=== PATIENT | female | born 1965 | race Caucasian/White ===

== ENCOUNTER 2017-06-20 10:36 | Emergency (ER) | payer BC ==
[~2017-06-20] VITALS: Ht 167.6 cm; Wt 61.0 kg
[2017-06-20] MEDS ORDERED: NAPR250T6 PO (10:54)
[2017-06-20] MEDS ORDERED: tylenol PM PO (10:54)
[2017-06-20] MEDS ORDERED: ASPIRIN 81 MG TABLET CHEW PO ONE (11:00)
[2017-06-20 11:27] LABS: BASOPHILS # (AUTO) 0.06 x10^3/uL (0-0.1); BASOPHILS % (AUTO) 1 % (0-1); EOSINOPHILS # (AUTO) 0.11 x10^3/uL (0-0.4); EOSINOPHILS % (AUTO) 2 % (1-7); LYMPHOCYTES # (AUTO) 1.63 x10^3/uL (1-3.4); LYMPHOCYTES % (AUTO) 29 % (22-44); MD NO; MEAN CORPUSCULAR HEMOGLOBIN 29.1 pg (27.0-34.8); MEAN CORPUSCULAR HGB CONC 33.5 g/dL (32.4-35.8); MEAN CORPUSCULAR VOLUME 86.8 fL (80-100); MEAN PLATELET VOLUME 8.2 fL (7.4-10.4); MONOCYTES # (AUTO) 0.33 x10^3/uL (0.2-0.8); MONOCYTES % (AUTO) 6 % (2-9); NEUTROPHILS # (AUTO) 3.45 x10^3/uL (1.8-6.8); NEUTROPHILS % (AUTO) 62 % (42-75); PLATELET COUNT 250 x10^3/uL (130-400); RED BLOOD COUNT 5.34 x10^6/uL (3.82-5.3); RED CELL DISTRIBUTION WIDTH 14.2 % (9.6-15.2)
[2017-06-20 11:34] LABS: ALBUMIN 3.9 g/dL (3.4-5.0); ANION GAP 7 mmol/L (5-15); CHLORIDE 110 mmol/L (98-107); CREATININE 0.69 mg/dL (0.55-1.02)
[2017-06-20 11:38] LABS: TROPONIN I < 0.015 ng/mL (0.000-0.045)
[2017-06-20] MEDS ORDERED: KETOROLAC 30 MG/1 ML IVPush ONE (12:00)
[2017-06-20] MEDS ORDERED: KETOROLAC 30 MG/1 ML ONE (12:03)
[2017-06-20 14:03] VITALS: BP 148/93
== END 2017-06-20 14:05 | disposition home or self-care (01) ==
LOC: ED 13:37
DX: R07.9 Chest pain, unspecified (principal)
CPT/HCPCS: 36415; 71045; 80048; 82040; 83880; 84484; 85025; 93005; 96374; 99285; J1885